=== PATIENT | male | born 1985 | race Caucasian/White ===

== ENCOUNTER 2020-10-17 12:45 | Outpatient (CLI) | payer OTHER | END 2020-10-17 12:51 | disposition home or self-care (01) | LOC: RAD 12:45 | DX: M54.2 Cervicalgia (principal); M25.512 Pain in left shoulder ==

== ENCOUNTER 2022-05-25 01:35 | Emergency (ER) | payer OTHER ==
[~2022-05-25] VITALS: Ht 193 cm; Wt 69.9 kg
[2022-05-25] MEDS ORDERED: GENVOYA TABLET1 EACH PO (02:01)
[2022-05-25] MEDS ORDERED: ACETAMINOPHEN650 M2 PO (04:24)
[2022-05-25] MEDS ORDERED: DICLOFENAC POTA50 MG PO (04:24)
== END 2022-05-25 04:29 | disposition home or self-care (01) ==
LOC: ER 01:35
DX: R51.9 Headache, unspecified (principal); Z20.822 Contact with and (suspected) exposure to COVID-19

== ENCOUNTER 2023-07-18 23:34 | Emergency (ER) | payer OTHER | END 2023-07-19 | disposition home or self-care (01) | LOC: ER 23:34 | DX: Z53.21 Procedure and treatment not carried out due to patient leaving prior to being seen by health care provider (principal) ==

== ENCOUNTER → 2023-07-18 | Emergency (ER) | payer OTHER ==
[~2023-07-18] VITALS: Ht 193 cm; Wt 68.0 kg
[~2023-07-18] MED LIST: ACETAMINOPHEN650 M2 PO; DICLOFENAC POTA50 MG PO; GENVOYA TABLET1 EACH PO
== END | disposition left against medical advice (07) ==
LOC: ER 03:55
DX: Z53.21 Procedure and treatment not carried out due to patient leaving prior to being seen by health care provider (principal)

== ENCOUNTER 2025-05-08 17:56 | Emergency (ER) | payer OTHER ==
[~2025-05-08] VITALS: Ht 193 cm; Wt 65.8 kg
[2025-05-08] MEDS ORDERED: FAMOTIDINE/PF 20 MG/2 ML VIAL IV ONE (20:15)
[2025-05-08] MEDS ORDERED: LACTOBACILLUS ACIDOPHILUS 1 CAP CAP PO ONE (20:15)
[2025-05-08] MEDS ORDERED: ONDANSETRON HCL 2 MG/ML VIAL ONE (20:17)
[2025-05-08] MEDS ORDERED: FAMOTIDINE/PF 20 MG/2 ML VIAL ONE (20:18)
[2025-05-08] MEDS ORDERED: 0.9 % SODIUM CHLORIDE 1,000 ML IV ONE (20:30)
[2025-05-08 21:09] LABS: BASO % 0.4 % (0.1-1.2); EOS # 0.16 (0.04-0.54); EOS % 1.9 % (0.7-7.0); LYMPH # 1.34 (1.18-3.74); LYMPH % 16.0 % (19.3-53.1); MEAN PLATELET VOLUME 9.70 fl (9.4-12.4); MONO # 1.28 (0.24-0.82); NEUT # 5.54 (1.56-6.13); NEUT % 66.2 % (34.0-71.1); RED CELL DISTRIBUTION WIDTH 13.4 % (11.6-14.4)
[2025-05-08 21:10] LABS: MONO % 15.3 % (4.7-12.5)
[2025-05-08 21:40] LABS: ALT/SGPT 16.0 U/L (12-78); AST/SGOT 13.0 U/L (15-37); BILIRUBIN TOTAL 1.45 mg/dL (0.3-1.2); BILIRUBIN,CONJUGATED 0.31 mg/dL (0.0-0.2); BUN CREA RATIO 10.0 (7.0-25.0); CREATININE SERUM 1.32 mg/dL (0.70-1.30); GFR 60.07; GLOBULINA 4.3 G/DL (2.4-3.5); GLUCOSE FASTING 94.0 mg/dL (65-100); OSMOLALITY SERUM 277.0 MOSM/KG (275-295)
[2025-05-08 22:00] LABS: COVID-19 AG NEGATIVE (NEGATIVE)
[2025-05-08 22:13] LABS: URINE APPEARANCE Cloudy; URINE BILIRRUBIN Small (NEGATIVE); URINE BLOOD Negative; URINE COLOR Dark Yellow; URINE GLUCOSE Negative (NEGATIVE); URINE KETONE Trace (NEGATIVE); URINE LEUKOCYTE Moderate; URINE NITRATE Negative; URINE PROTEIN 30 (NEGATIVE); URINE UROBILINOGEN 1.0 E.U./dl
[2025-05-08 22:16] LABS: URINE BACTERIA 595.1 uL (0.0-1933); URINE RBC 16.2 uL (0.0-20.8); URINE WBC 172.1 uL (0.0-23.2)
[2025-05-08 22:21] LABS: URINE CAST > 21.83 uL (0.0-1.40); URINE EPITHELIAL CELLS > 201.7 uL (0.0-38.8)
[2025-05-08] MEDS ORDERED: METRONIDAZOLE500 MG PO (22:35)
[2025-05-08] MEDS ORDERED: CIPROFLOXACIN500 MG PO (22:35)
[2025-05-08] MEDS ORDERED: INTESTINEX680 M1 PO (22:35)
[2025-05-08 22:43] LABS: COCAINE NEGATIVE (NEGATIVE); METHADONE NEGATIVE (NEGATIVE); OPIATES NEGATIVE (NEGATIVE); THC ( Cannabinoids) NEGATIVE (NEGATIVE)
[2025-05-08 23:04] VITALS: BP 107/71; O2SAT 97
== END 2025-05-08 23:07 ==
LOC: ER 17:56
PROVIDERS: General Practice
DX: K52.9 Noninfective gastroenteritis and colitis, unspecified (principal); I88.0 Nonspecific mesenteric lymphadenitis; Z20.822 Contact with and (suspected) exposure to COVID-19